=== PATIENT | male | born 1960 | race Caucasian/White ===

== ENCOUNTER 2019-12-20 18:05 | Emergency (ER) | payer OTHER, SELFPAY ==
[2019-12-20 18:23] VITALS: BP 123/71; PULSE 67; RESP 20; TEMP 36.8; O2SAT 97; BMI 33.4
--- NOTE | 2019-12-20 19:29 | PC.NURSE ---
MD in to bedside for primary eval
--- NOTE | 2019-12-20 19:33 | CT_ITS ---
EXAMINATION: CT ABDOMEN AND PELVIS WITHOUT CONTRAST CLINICAL INFORMATION: Right flank pain COMPARISON: None TECHNIQUE: Multidetector volumetric imaging was performed from the superior aspect of the liver through the pubic symphysis. Sagittal and coronal reformatted images were obtained on the technologist's workstation. This CT examination was performed using dose optimization techniques as appropriate, variously including the following: *Automated exposure control *Adjustment of mA and/or kV according to patient size (this includes techniques or standardized protocols for targeted exams where dose is matched to indication/reason for exam; i.e. extremities or head) *Use of iterative reconstruction technique DLP: 773 mGy-cm FINDINGS: LUNG BASES: The visualized lung bases are unremarkable. LIVER, GALLBLADDER, AND BILIARY TREE: The liver is normal in size, shape, and attenuation. No focal hepatic lesion or biliary ductal dilatation is present. There is a gallstone within the gallbladder neck. No evidence of acute cholecystitis. No biliary ductal dilatation. PANCREAS: Unremarkable. SPLEEN: Unremarkable. ADRENAL GLANDS: Unremarkable. KIDNEYS AND URETERS: The kidneys are normal in size, shape, and attenuation. No hydronephrosis, hydroureter, or calculi seen. No perinephric stranding. BLADDER: Unremarkable. GASTROINTESTINAL TRACT: The small and large bowel are unremarkable. The appendix is unremarkable. ABDOMINAL WALL: No significant hernia is appreciated. Incidental intramuscular lipoma along the left anterolateral abdominal wall. LYMPH NODES: Normal. VASCULAR: Scattered atherosclerotic calcifications. PELVIC VISCERA: Unremarkable. OSSEOUS STRUCTURES: Unremarkable. IMPRESSION: No renal or ureteral calculi. No hydronephrosis. Cholelithiasis. No focal inflammatory process or obstruction.
[2019-12-20 19:55] LABS: MANUAL DIFF FLAG NO
[2019-12-20] MEDS: ondansetron HCL 4 MG/2 ML VIAL IVPUSH (19:55)
[2019-12-20] MEDS: Ketorolac Tromethamine 15 MG/ML VIAL IV (19:55)
[2019-12-20 19:56] LABS: Basophils Percent Auto 0.4 % (0-2); Eosinophils Absolute Auto 0.2 X10*3/uL (0.0-0.4); Eosinophils Percent Auto 3.3 % (0-4); Hematocrit 46.4 % (42-52); Hemoglobin 15.7 g/dl (14.0-18.0); Imm Gran Abs Auto 0.02 X10*3/uL (0.00-0.03); Imm Gran Pct Auto 0.3 % (0.0-0.4); Lymphocytes Absolute Auto 2.7 X10*3/uL (1.2-4.9); Lymphocytes Percent Auto 38.6 % (20-40); Mean Corpuscular HGB Conc 33.8 g/dl (31.0-36.0); Mean Corpuscular Hemoglobin 28.8 pg (27.0-33.0); Mean Corpuscular Volume 85.1 fL (80-98); Mean Platelet Volume 9.4 fL (9.4-12.4); Monocytes Absolute Auto 0.7 X10*3/uL (0.1-1.2); Monocytes Percent Auto 9.7 % (2-11); Neutrophils Absolute Auto 3.3 X10*3/uL (2.0-8.3); Neutrophils Percent Auto 47.7 % (45-73); Platelet Count 167 X10*3/uL (160-400); Red Blood Count 5.45 X10*6/uL (4.60-5.80); Red Cell Distribution Width 14.7 % (11.0-16.0); White Blood Count 6.9 X10*3/uL (4.8-10.8)
[2019-12-20 20:00] LABS: Glucose Urine UA NEG (NEG); Leukocyte Esterase Urine NEG (NEG); Nitrite Urine NEG (NEG); Urine Blood NEG (NEG); Urine Ketones NEG (NEG); Urine Protein NEG (NEG-TRACE)
[2019-12-20 20:01] LABS: Appearance Urine CLEAR; Color Urine YELLOW
--- NOTE | 2019-12-20 20:01 | ED_ITS ---
HPI - Back Pain/Injury General Chief Complaint: Back Pain/Injury Stated Complaint: BACK PAIN Time Seen by Provider: 12/20/19 19:24 History of Present Illness HPI Narrative: Patient is a 59-year-old male presents today with having right flank pain. It does not radiate anywhere. No fever no chills no coughing or congestion or upper respiratory symptoms. No bowel urinary incontinence. No pain on urination. No chest pain or shortness of breath. No diaphoresis. The pain is sharp in nature. MD elicited complaint: back pain Pertinent past history: prior back pain Onset (ago): hour(s) Timing: constant Severity: moderate Similar Symptoms Previously: No Quality: sharp Location: lumbar spine Radiation: none Exacerbating factors: none Relieving factors: none Context: turning/twisting Associated symptoms: denies other symptoms Related Data Previous Rx's Medication Instructions Recorded ibuprofen 400 mg PO Q6H PRN #20 tab 12/20/19 Allergies Allergy/AdvReac Type Severity Reaction Status Date / Time No Known Allergies Allergy Verified 12/20/19 18:31 Review of Systems Review of Systems: Yes all other systems are reviewed and are negative Eyes: Eyes: Reports as per HPI and Reports no additional eye complaints ENT: Reports system reviewed and no additional complaints, except as documented and Reports as per HPI Cardiovascular: Cardiovascular: Reports as per HPI and Reports no additional cardiovascular complaints Respiratory: Respiratory: Reports as per HPI and Reports no additional respiratory complaints Gastrointestinal: Gastrointestinal: Reports as per HPI, Reports no additional gastrointestinal complaints and Denies abdominal pain Genitourinary: Genitourinary: Reports no additional male genitourinary complaints and Reports as per HPI Musculoskeletal: Musculoskeletal: Reports no additional musculoskeletal complaints and Reports as per HPI Neurologic: Reports system reviewed and no additional complaints, except as documented and Reports as per HPI Psychiatric: Psychiatric: Reports no additional psychiatric complaints Endocrine: Endocrine: Reports no additional endocrine complaints and Reports as per HPI Hematologic/Lymphatic: Hematologic/Lymphatic: Reports no additional hematologic/lymphatic complaints Allergic/Immunologic: Allergic/Immunologic: Reports no additional allergic/immunologic complaints and Reports as per HPI PMFSH Past Medical History Medical History (Updated 12/20/19 @ 21:58 by Jena Mary MD) Diabetic acidosis, type II Hepatitis C Liver cirrhosis Social History Social History Alcohol intake: former Smoking Status: Current every day smoker Smoked in Last 30 Days: Yes Use of substances other than those prescribed or required for medical reasons: Yes Substance Use Type: IV Drugs Substance Use Frequency: Chronic Longstanding Any prior treatment program specific to substance use: Yes Advance Directives: No Advance Directives Information Provided: Yes Physical Exam Vital Signs: Vital Signs: Vital Signs Temp Pulse Resp BP Pulse Ox 12/20/19 18:23 98.3 F 67 20 123/71 97 Body Mass Index 33.4 Const: General: cooperative Orientation/consciousness: oriented to person, oriented to place and oriented to time HENMT: Head: Yes normal to inspection General nose exam: Normal external nose present Eyes: General: appearance normal, both eyes and all related structures Eyelids: Yes eyelids normal Conjunctivae: conjunctivae normal Sclerae: sclerae normal Corneas: corneas normal Pupils: Equal, round and reactive pupils present EOM: EOMs intact bilaterally Neck: Neck: Yes normal visual inspection, Yes full ROM and Yes no lymphadenopathy Chest: Chest palpation & inspection: normal inspection of the chest and normal palpation of entire chest wall Resp: Effort & Inspection: normal respiratory effort and able to speak in complete sentences Auscultation: clear to auscultation bilaterally Cardio: Jugular venous distension: no JVD Rate: regular rate Rhythm: regular rhythm Heart sounds: S1 normal heart sound present and S2 normal heart sound present GI: Inspection: Yes normal to inspection Palpation (GI): Soft to palpation, not firm, nontender and no guarding : General: No CVA tenderness and Yes no CVA tenderness Back/Spine/Pelvis: Back: no CVA tenderness and No CVA tenderness Skin: General skin exam: no rashes or lesions noted Neuro: General: oriented to person, oriented to place and oriented to time Cranial nerves: Yes Equal, round and reactive pupils present Extrem: General: Yes normal to inspection and Yes full ROM Psych: Appearance: grossly normal Course Course Course Narrative: Labs and pain medication ordered. Will get CT scan to rule out the possibility of kidney stones and other pathologies. MDM - Back Pain/Injury MDM Narrative Medical decision making narrative: patient did not have any bowel urinary incontinence. No focal weakness. CT scan of the abdomen did not show any acute evidence of abdominal aortic aneurysm. No kidney stone. No obstruction or abscess no perforation. Patient given a dose of NSAID with good relief of symptoms. Kidney functions normal. Will discharge patient home follow-up on an outpatient basis. Lab Data Result diagrams: 12/20/19 19:50 12/20/19 19:50 Labs: Lab Results 12/20/19 12/20/19 12/20/19 Range/Units 19:50 19:50 19:50 WBC 6.9 (4.8-10.8) X10*3/uL RBC 5.45 (4.60-5.80) X10*6/uL Hgb 15.7 (14.0-18.0) g/dl Hct 46.4 (42-52) % MCV 85.1 (80-98) fL MCH 28.8 (27.0-33.0) pg MCHC 33.8 (31.0-36.0) g/dl RDW 14.7 (11.0-16.0) % Plt Count 167 (160-400) X10*3/uL MPV 9.4 (9.4-12.4) fL Immature Gran % (Auto) 0.3 (0.0-0.4) % Neut % (Auto) 47.7 (45-73) % Lymph % (Auto) 38.6 (20-40) % [place] % (Auto) 9.7 (2-11) % Eos % (Auto) 3.3 (0-4) % Baso % (Auto) 0.4 (0-2) % Lymph # (Auto) 2.7 (1.2-4.9) X10*3/uL [place] # (Auto) 0.7 (0.1-1.2) X10*3/uL Eos # (Auto) 0.2 (0.0-0.4) X10*3/uL Baso # (Auto) 0.0 (0.0-0.2) X10*3/uL Abs Immat Gran (auto) 0.02 (0.00-0.03) X10*3/uL Absolute Neuts (auto) 3.3 (2.0-8.3) X10*3/uL Absolute Nucleated RBC 0.000 (0.0-0.012) X10*3/uL Nucleated RBC % (auto) 0.0 (0.0-0.2) /100WBC Sodium 141 (135-145) mmol/L Potassium 4.4 (3.3-5.1) mmol/l Chloride 105 (96-108) mmol/L Carbon Dioxide 30 H (22-29) mmol/L Anion Gap 10 L (12-20) BUN 23 H (9-16) mg/dL Creatinine 0.98 (0.5-1.4) mg/dL Estim Creat Clear Calc 94.0 Estimated GFR > 60 Random Glucose 120 H (60-115) mg/dL Calcium 8.8 (8.4-10.2) mg/dL Lipase 29 (8-78) U/L Urine Color YELLOW Urine Appearance CLEAR Urine pH 7.0 (5.0-8.0) Ur Specific [place] 1.020 (1.005-1.025) Urine Protein NEG (NEG-TRACE) MG/DL Urine Glucose (UA) NEG (NEG) MG/DL Urine Ketones NEG (NEG) MG/DL Urine Blood NEG (NEG) Urine Nitrite NEG (NEG) Ur Leukocyte Esterase NEG (NEG) Discharge Plan Discharge Clinical Impression: Strain of lumbar region Patient Disposition: Home, Self-Care Prescriptions: New ibuprofen 400 mg tablet 400 mg PO Q6H PRN (Reason: pain) Qty: 20 RF: 0 Referrals: [facility] [Provider Group] - 2 days
[2019-12-20 20:28] LABS: Anion Gap 10 (12-20); Blood Urea Nitrogen 23 mg/dL (9-16); Calcium 8.8 mg/dL (8.4-10.2); Carbon Dioxide 30 mmol/L (22-29); Chloride 105 mmol/L (96-108); Estimated Glomerular Filt Rate > 60; Glucose Random 120 mg/dL (60-115); Lipase 29 U/L (8-78); Potassium 4.4 mmol/l (3.3-5.1); Sodium 141 mmol/L (135-145)
== END 2019-12-20 22:23 | disposition home or self-care (01) ==
PROVIDERS: Emergency Provider Emergency Medicine Emergency Medical Services; PCP Internal Medicine Gastroenterology
DX: S39.012A Strain of muscle, fascia and tendon of lower back, initial encounter (principal); M54.6 Pain in thoracic spine; X50.1XXA Overexertion from prolonged static or awkward postures, initial encounter; Y93.9 Activity, unspecified; Y92.9 Unspecified place or not applicable; Y99.9 Unspecified external cause status; F17.200 Nicotine dependence, unspecified, uncomplicated; Z71.6 Tobacco abuse counseling
CPT/HCPCS: 36415; 74176; 80048; 81003; 83690; 85025; 96374; 96375; 99284; J1885; J2405

== ENCOUNTER 2019-12-29 09:51 | Emergency (ER) | payer OTHER, SELFPAY ==
[2019-12-29 10:04] VITALS: BP 129/78; PULSE 71; RESP 16; TEMP 36.2; O2SAT 95; BMI 34.2
--- NOTE | 2019-12-29 10:46 | XR_ITS ---
EXAMINATION: XR WRIST, LEFT CLINICAL INFORMATION: Pain left hand and left wrist. History of arthritis. COMPARISON: None TECHNIQUE: PA, lateral, and oblique views of the left wrist. FINDINGS: The bones and soft tissues are normal. No fracture. Alignment is anatomic with normal joint spaces. No erosions or abnormal soft tissue calcifications. IMPRESSION: Unremarkable left wrist exam
--- NOTE | 2019-12-29 11:23 | ED_ITS ---
HPI - Extremity Problem General Chief complaint: Extremity Injury, Upper Stated complaint: left wrist pain Time Seen by Provider: 12/29/19 10:18 Source: patient Mode of arrival: ambulatory Limitations: no limitations History of Present Illness HPI Narrative: 59yoM c PMHx of rheumatoid arthritis, hepatitis-C, liver cirrhosis, asthma and diabetes presenting to the ED c c/o left wrist/hand pain c numbness to first 4 digits excluding the little finger for a few weeks worse today c associated hand/finger stiffness. Denies any injuries or any additional complaints or concerns at this time. Reports he has been trying to reach out to his primary care provider for referral for his left wrist/hand pain for possible carpal tunnel which he believes it is although has not had a return call back. Related Data Previous Rx's Medication Instructions Recorded ibuprofen 400 mg PO Q6H PRN #20 tab 12/20/19 Allergies Allergy/AdvReac Type Severity Reaction Status Date / Time No Known Allergies Allergy Verified 12/20/19 18:31 Review of Systems Review of Systems: Constitutional : No Weight loss, No Fever, No Chills, No Night Sweats, No Fatigue, No Malaise ENT/Mouth : No Hearing loss, No Ear Pain, No Nasal Congestion, No Sinus Pain, No Hoarseness, No sore throat, No Rhinorrhea, No Swallowing Difficulty Eyes: No Eye Pain, No Swelling, No Redness, No Foreign Body, No Discharge, No Vision Changes Cardiovascular : No Chest Pain, No SOB, No Dyspnea on Exertion, No Orthopnea, No Edema, No Palpitations Respiratory : No Cough, No Sputum, No Wheezing, No Smoke Exposure, No Dyspnea Gastrointestinal : No Nausea, No Vomiting, No Diarrhea, No Constipation, No abdominal Pain= Musculoskeletal : No Myalgias Skin : No Skin Lesions, No rash Neuro : No Weakness, No Paresthesias, No Loss of Consciousness, No Dizziness, No Headache Heme/Lymph: No Bruising, No Bleeding,No Lymphadenopathy Endocrine : No Polyuria, No Polydipsia, No Temperature Intolerance Yes all other systems are reviewed and are negative [facility] Past Medical History Attestation statement: The following information was validated with the patient. Medical History Asthma Diabetic acidosis, type II Hepatitis C Liver cirrhosis Pilonidal cyst Social History Social History Alcohol intake: never Smoking Status: Current every day smoker Substance Use Type: Former Substance User Advance Directives: Yes Advance Directives Information Provided: Yes Advance Directives on File: No Physical Exam Vital Signs: Vital Signs: Vital Signs Temp Pulse Resp BP Pulse Ox 12/29/19 10:04 97.1 F 71 16 129/78 95 Body Mass Index 34.2 vital signs have been reviewed as normal and appeared to be correct. Blood pressure normal. Heart rate normal. Respiration rate normal. Temperature normal. Oxygen saturation normal. Appearance: Alert. Oriented X3. No acute distress. Head: Normal external exam. Normocephalic. Atraumatic. No Gonzales signs noted. No raccoon eyes noted Eyes: PERRLA. EOMI. Conjunctiva and sclera normal. Eyelids normal. ENT: EAC normal. TM's Normal. Pharynx normal. Uvula midline. Moist mucous membranes. No trismus noted. No drooling noted. No muffled voice noted. Neck: Normal inspection. Neck supple. FROM. No adenopathy. Thyroid Normal. No meningeal signs. No neck mass noted. CVS: Normal heart rate and rhythm. Heart sound normal. No murmurs noted. Pulses normal throughout. Respiratory: No respiratory distress. Painless inspiration. Breath sounds normal. No wheezes/rales/rhonchi noted. Chest nontender. No accessory muscle usage noted or decreased air movement noted. Abdomen: Soft and nontender. Bowel sounds normal in all 4 quadrants. No distention noted. No organomegaly noted. No visible injury noted. Back: No CVA tenderness. Full range of motion noted. Skin: Skin warm and dry. Normal skin color. Normal skin turgor. No rashes/lesions/lacerations noted. Extremities: left wirst/hand c ttp over the distal aspect of the wrist on the ventral aspect. +Prayer's/Phalen's sign. limited ROM for flexion on all finger due to stiffness/pain per pt. all other extremities nontender and exhibit normal range of motion.. No lower extremity edema. Neuro: Oriented X 3. No motor deficit. No sensory deficit. Reflexes normal. Course Course Course Narrative: 59yoM c PMHx of rheumatoid arthritis, hepatitis-C, liver cirrhosis, asthma and diabetes presenting to the ED c c/o left wrist/hand pain c numbness to first 4 digits excluding the little finger for a few weeks worse today c associated hand/finger stiffness. - Plan: Xray then place in cock up velcro splint then re-evaluate. MDM - Extremity (Nontraumatic) Imaging Data left wrist/hand: Attestation: I personally reviewed and interpreted this imaging study as follows: Radiologist's impression: FINDINGS: The bones and soft tissues are normal. No fracture. Alignment is anatomic with normal joint spaces. No erosions or abnormal soft tissue calcifications. IMPRESSION: Unremarkable left wrist exam Discharge Plan Discharge Prescriptions: No Action ibuprofen 400 mg tablet 400 mg PO Q6H PRN (Reason: pain) Qty: 20 RF: 0
== END 2019-12-29 11:46 | disposition home or self-care (01) ==
PROVIDERS: Emergency Provider Emergency Medicine
DX: M25.532 Pain in left wrist (principal); Z87.891 Personal history of nicotine dependence
CPT/HCPCS: 73110; 99283

== ENCOUNTER 2020-03-25 13:30 | Emergency (ER) | payer OTHER, SELFPAY ==
--- NOTE | 2020-03-25 14:27 | MHC.RECOVSUP ---
Recovery Support note: Patient is 60 year old Kiswahili speaking male who presented [place] [facility] [place]. Patient reports he was previously in a residential treatment program and was removed from the program, reportedly due to missing part of a meeting. Patient reports that he relapsed last night and he has no where to go. Discussed treatment options with patient. Patient reports he is interested in going to detox so that he can get back into treatment. Explained to patient that there are currently no detox beds available in the state and that he may no be able to remain in the ED until a bed is available. Patient acknowledged and reports his niece may be able to pick him up/ let him stay until he gets a bed. Patient is currently on the wait list at [facility]. [facility] reports that they are familiar with this patient and that they will likely have a bed for him tomorrow.
--- NOTE | 2020-03-25 14:29 | PC.NURSE ---
PT REPEATEDLY IN AND OUT OF ED, NOT PRESENT WHEN CALLED FOR TRIAGE MULTIPLE TIMES.
[2020-03-25 15:08] VITALS: BP 140/71; PULSE 85; RESP 16; TEMP 36.6; O2SAT 97; BMI 32.6
--- NOTE | 2020-03-25 15:18 | ED_ITS ---
HPI - Psych General Chief Complaint: ETOH/Substance Use Stated Complaint: detox Time Seen by Provider: 03/25/20 15:16 Source: patient Mode of arrival: ambulatory Limitations: no limitations History of Present Illness HPI Narrative: 60 y/o male with history of RA, hepatitis C, asthma, DM who presents for detox. He reports being in a program for the last 10 months but he was recently kicked out for missing a meeting. He reports going to a Methadone clinic but also using heroin for the last 2 days. Last injected earlier today. Denies other drug use. Denies ETOH use. Denies SI or HI. MD complaint: feels depressed and substance abuse Onset (ago): day(s) (3) Duration: constant History of same: Yes Relieving factors: none Exacerbating factors: drug use Context: recent drug abuse Associated psychiatric symptoms: depression Associated symptoms: denies other symptoms Treatments prior to arrival: none Related Data Previous Rx's Medication Instructions Recorded ibuprofen 400 mg PO Q6H PRN #20 tab 12/20/19 naproxen 500 mg PO BID PRN #15 tab 12/29/19 prednisone 40 mg PO DAILY 5 Days #10 tab 12/29/19 Allergies Allergy/AdvReac Type Severity Reaction Status Date / Time No Known Allergies Allergy Verified 12/20/19 18:31 Review of Systems Review of Systems: Constitutional: No Fever, No Chills ENT/Mouth: No sore throat Cardiovascular: No Chest Pain, No SOB Respiratory: No Cough, No Sputum Gastrointestinal: No Nausea, No Vomiting, No Diarrhea, No abdominal Pain Musculoskeletal: No joint pain, No Myalgias Skin: No Skin Lesions, No rash Neuro: No Weakness, No Numbness, No Dizziness, + Headache Psych: No Anxiety/Panic, + Depression PMFSH Past Medical History Medical History Asthma Diabetic acidosis, type II Hepatitis C Liver cirrhosis Pilonidal cyst Social History Social History Alcohol intake: never Smoking Status: Current every day smoker Substance Use Type: Former Substance User Advance Directives: No Advance Directives Information Provided: Yes Physical Exam Vital Signs: Vital Signs: Last Vital Signs Temp 97.8 F 03/25/20 15:08 Pulse 85 03/25/20 15:08 Resp 16 03/25/20 15:08 BP 140/71 H 03/25/20 15:08 Pulse Ox 97 03/25/20 15:08 Body Mass Index 32.6 Appearance: Alert. Oriented X3. No acute distress. Eyes: Pupils equal, round and reactive to light. ENT: Pharynx normal. Neck: Normal inspection. Neck supple. CVS: Normal heart rate and rhythm. Pulses normal. Respiratory: No respiratory distress. Breath sounds normal. Abdomen: Soft and nontender. +BS x4 Skin: Skin warm and dry. Normal skin color. Normal skin turgor. No rashes. Extremities: No lower extremity edema. Neuro: Oriented X 3. Course Course Course Narrative: 60 y/o with history of heroin use presenting seeking detox. Seen by CARE team case management social worker. Will await recs. Reevaluation(s) Reevaluation #1: CARE team Paramjit spoke with patient and made referrals to several detox programs. No beds available today, likely tomorrow. Patient's niece willing to take him overnight. He will need to follow up with Prov tomorrow, every 6 hours to maintain being on the list. Patient has been counseled exten sively by Paramjit. He is stable for discharge with plan for detox bed tomorrow. Reevaluation #2: COVID negative and Utox +opiates, amphetamines and cocaine MDM - Psych Lab Data Attestation: I reviewed the patient's lab results. Labs: Lab Results 03/25/20 03/25/20 Range/Units 15:57 16:45 Urine Opiates Screen POSITIVE H (Not Detect) Ur Barbiturates Screen Not Detected (Not Detect) Ur Phencyclidine Scrn Not Detected (Not Detect) Ur Amphetamines Screen POSITIVE H (Not Detect) U Benzodiazepines Scrn Not Detected (Not Detect) Urine Cocaine Screen POSITIVE H (Not Detect) U Marijuana (THC) Screen Not Detected (Not Detect) COVID-19 (JENNIFER) Negative (Negative) COVID-19 Clin Com See Note Discharge Plan Discharge Clinical Impression: Polysubstance abuse Patient Disposition: Home, Self-Care Instructions: Opioid Use Disorder (ED), Opioid Withdrawal (ED) Additional Instructions: Call the detox center every 6 hours to stay on the list for detox. A bed will likely be available to you tomorrow. Do not use heroin, it call kill you. If you develop worsening withdrawal come back to the ER for further management. Prescriptions: No Action naproxen 500 mg tablet 500 mg PO BID PRN (Reason: pain) Qty: 15 RF: 0 prednisone 20 mg tablet 40 mg PO DAILY 5 Days Qty: 10 RF: 0 ibuprofen 400 mg tablet 400 mg PO Q6H PRN (Reason: pain) Qty: 20 RF: 0
[2020-03-25 15:59] VITALS: PULSE 55
--- NOTE | 2020-03-25 16:09 | MHC.RECOVSUP ---
Recovery Support note: Discussed with patient that there are currently no beds available for ATS. Patient is currently on the wait list for [facility] and [facility]. Patient demographic information has been faxed to both facilities. They will reach out to patient if a bed becomes available and patient has been instructed to call each facility every 4-6 hours to remain on the list. Patient provided with number for each facility. Patient is awaiting a COVID test and a toxicology report. Patient labs will need to be faxed to [facility] (fax - [phone]). This signwriter will follow up with [facility] tomorrow morning to ensure that they have everything they need to admit patient when bed becomes available. Encouraged patient to reach out to his niece to see if she would be able to pick him up and have him spend then night until a bed becomes available. Discussed case with patient's ED provider.
[2020-03-25 16:32] LABS: COVID-19 Test Negative (Negative)
[2020-03-25 17:19] LABS: Amphetamine Screen Urine POSITIVE (Not Detect); Barbiturates, Urine Not Detected (Not Detect); Benzodiazepines Screen Urine Not Detected (Not Detect); Cannabinoid Screen Urine Not Detected (Not Detect); Cocaine Screen Urine POSITIVE (Not Detect); Opiate Screen Urine POSITIVE (Not Detect); Phencyclidine Screen Urine Not Detected (Not Detect)
[2020-03-25 18:00] VITALS: BP 138/74; PULSE 82; RESP 18; TEMP 36.8; O2SAT 97
== END 2020-03-25 18:11 | disposition home or self-care (01) ==
PROVIDERS: Physician Assistant; Emergency Provider Emergency Medicine Emergency Medical Services
DX: F11.10 Opioid abuse, uncomplicated (principal); F33.1 Major depressive disorder, recurrent, moderate; F17.200 Nicotine dependence, unspecified, uncomplicated; Z71.6 Tobacco abuse counseling; Z20.822 Contact with and (suspected) exposure to COVID-19; Z79.899 Other long term (current) drug therapy; Z71.51 Drug abuse counseling and surveillance of drug abuser
CPT/HCPCS: 36415; 80307; 87635; 99283; 99284

== ENCOUNTER 2020-03-26 09:15 | Emergency (ER) | payer OTHER, SELFPAY ==
--- NOTE | 2020-03-26 09:50 | MHC.RECOVSUP ---
Recovery Support note: Patient is a 60 year old Faroese speaking male who presented [place] [facility] [place] seeking detox. Plan was for patient to have his niece pick him up and for him to follow up with [facility] today. Patient was unable to have his niece pick him up and ended up remaining on [facility] after discharge. Patient has been in contact with [facility]. [facility] informed this inspector automatic typewriter that they are holding a bed for him but they must first review his clinical before they can offer him an admission. Discussed case with relief charge nurse. If patient needs additional labs prior to admission, patient would benefit from a readmission. Patient expressed concern related to getting his methadone dose. Explained to patient that [facility] will be able to dose him if he is admitted and that if his admission time is pushed back to later tonight he can readmit to the ED for a dose. This inspector automatic typewriter will follow up with [facility] and patient in one hour to determine plan. This inspector automatic typewriter will assist with arranging transportation for patient.
[2020-03-26 10:56] VITALS: BP 144/78; PULSE 72; RESP 18; TEMP 36.9; O2SAT 95; BMI 32.6
--- NOTE | 2020-03-26 11:27 | MHC.RECOVSUP ---
Recovery Support note: Patient has a bed held at [facility] for a 1500 admission pending the results of patient's labs. Patient reports he may be able to have a public speaking coach transport him. This health underwriter can assist with transportation if that does not work out. Patient eager to leave the hospital to smoke a cigarette. Explained the important of remaining for the labs and patient acknowledged. Patient also expressed concerns regarding getting his methadone dose today. Discussed case with patient's RN. This health underwriter will fax patient's labs and any medications given to [facility] (fax - [phone]).
--- NOTE | 2020-03-26 11:52 | ED_ITS ---
HPI - General Adult General Chief complaint: General Medical Stated complaint: withdrawal Time Seen by Provider: 03/26/20 11:52 Source: patient Mode of arrival: ambulatory Limitations: no limitations History of Present Illness HPI narrative: 60-year-old male with below noted past medical history including history of polysubstance abuse here for detox placement. He was here yesterday had a tox screen done advise today by the counselor to come here for medical screening labs and bed at [facility] for 15:00 today. Patient offers no complaints. He is requesting to be dosed with his methadone he has got last dos e yesterday he is on 60 mg. He goes to the [facility] in [place]. He offers no medical complaints. Onset (ago): day(s) Treatments prior to arrival: none Related Data Previous Rx's Medication Instructions Recorded ibuprofen 400 mg PO Q6H PRN #20 tab 12/20/19 naproxen 500 mg PO BID PRN #15 tab 12/29/19 prednisone 40 mg PO DAILY 5 Days #10 tab 12/29/19 Allergies Allergy/AdvReac Type Severity Reaction Status Date / Time No Known Allergies Allergy Verified 12/20/19 18:31 Review of Systems Review of Systems: Constitutional: No Weight loss, No Fever, No Chills, No Night Sweats, No Fatigue, No Malaise ENT/Mouth: No Hearing loss, No Ear Pain, No Nasal Congestion, No Sinus Pain, No Hoarseness, No sore throat, No Rhinorrhea, No Swallowing Difficulty Eyes: No Eye Pain, No Swelling, No Redness, No Foreign Body, No Discharge, No Vision Changes Cardiovascular: No Chest Pain, No SOB, No Dyspnea on Exertion, No Orthopnea, No Edema, No Palpitations Respiratory: No Cough, No Sputum, No Wheezing, No Smoke Exposure, No Dyspnea Gastrointestinal: No Nausea, No Vomiting, No Diarrhea, No Constipation, No abdominal Pain, No Hematochezia, No Melena Genitourinary: no irregular bleeding, No Dysuria, No Urinary Frequency, No Hematuria, No Urinary Incontinence, No Urgency, No Flank Pain Musculoskeletal: No joint pain, No Myalgias, No Joint Swelling Skin: No Skin Lesions, No rash Neuro: No Weakness, No Numbness, No Paresthesias, No Loss of Consciousness, No Dizziness, No Headache Psych: No Anxiety/Panic, No Depression, No SI/HI/AH/VH Heme/Lymph: No Bruising, No Bleeding,No Lymphadenopathy Endocrine: No Polyuria, No Polydipsia, No Temperature Intolerance Yes all other systems are reviewed and are negative [facility] Past Medical History Medical History Asthma Diabetic acidosis, type II Hepatitis C Liver cirrhosis Pilonidal cyst Social History Social History Alcohol intake: never Smoking Status: Current every day smoker Substance Use Type: Former Substance User Advance Directives: No Advance Directives Information Provided: Yes Physical Exam Vital Signs: Vital Signs: Last Vital Signs Temp 98.5 F 03/26/20 10:56 Pulse 72 03/26/20 10:56 Resp 18 03/26/20 10:56 BP 144/78 H 03/26/20 10:56 Pulse Ox 95 03/26/20 10:56 Body Mass Index 32.6 Reviewed Const: General: cooperative and healthy appearing; No acute distress or intoxicated appearing Nutritional Appearance: average body habitus Orientation/consciousness: patient oriented x3 HENMT: Head: Yes normal to inspection Ears: hearing grossly normal bilaterally Eyes: General: appearance normal, both eyes and all related structures Visual Leong: normal visual leong by confrontation Neck: Neck: Yes normal visual inspection, No positive Brudzinski's sign, No positive Kernig's sign and No tender Thyroid: Thyroid normal Chest: Chest palpation & inspection: normal inspection of the chest Resp: Effort & Inspection: normal respiratory effort Cardio: Jugular venous distension: no JVD Rate: regular rate Rhythm: regular rhythm Heart sounds: S1 normal heart sound present and S2 normal heart sound present GI: Inspection: Yes normal to inspection Percussion: Yes normal to percussion Auscultation: normal bowel sounds : General: Yes no CVA tenderness Back/Spine/Pelvis: Back: no CVA tenderness Skin: General skin exam: no rashes or lesions noted Neuro: General: patient oriented x3 Extrem: General: Yes normal to inspection Course Course Course Narrative: Substance abuse counselor Paramjit assisted patient securing bed at the detox center at [place]. Intake done. Will transfer with assistance of care team. Medical Decision Making Lab Data Result diagrams: 03/26/20 12:01 01/15/21 12:01 Labs: Lab Results 03/26/20 03/26/20 Range/Units 12:01 12:01 WBC 8.0 (4.8-10.8) X10*3/uL RBC 5.60 (4.60-5.80) X10*6/uL Hgb 15.9 (14.0-18.0) g/dl Hct 47.6 (42-52) % MCV 85.0 (80-98) fL MCH 28.4 (27.0-33.0) pg MCHC 33.4 (31.0-36.0) g/dl RDW 13.4 (11.0-16.0) % Plt Count 172 (160-400) X10*3/uL MPV 10.0 (9.4-12.4) fL Immature Gran % (Auto) 0.4 (0.0-0.4) % Neut % (Auto) 72.8 (45-73) % Lymph % (Auto) 18.2 L (20-40) % Clinch % (Auto) 6.4 (2-11) % Eos % (Auto) 2.0 (0-4) % Baso % (Auto) 0.2 (0-2) % Lymph # (Auto) 1.5 (1.2-4.9) X10*3/uL Clinch # (Auto) 0.5 (0.1-1.2) X10*3/uL Eos # (Auto) 0.2 (0.0-0.4) X10*3/uL Baso # (Auto) 0.0 (0.0-0.2) X10*3/uL Abs Immat Gran (auto) 0.03 (0.00-0.03) X10*3/uL Absolute Neuts (auto) 5.8 (2.0-8.3) X10*3/uL Absolute Nucleated RBC 0.000 (0.0-0.012) X10*3/uL Nucleated RBC % (auto) 0.0 (0.0-0.2) /100WBC Sodium 140 (135-145) mmol/L Potassium 4.1 (3.3-5.1) mmol/l Chloride 104 (96-108) mmol/L Carbon Dioxide 25 (22-29) mmol/L Anion Gap 15 (12-20) BUN 23 H (9-16) mg/dL Creatinine 0.92 (0.5-1.4) mg/dL Estim Creat Clear Calc 97.8 Estimated GFR > 60 Random Glucose 166 H D (60-115) mg/dL Calcium 8.8 (8.4-10.2) mg/dL Total Bilirubin 0.5 (0.0-1.0) mg/dL AST 18 (5-37) U/L ALT 24 (0-40) U/L Alkaline Phosphatase 70 (39-117) U/L Total Protein 7.2 (6.5-8.0) g/dL Albumin 3.6 (3.5-5.0) g/dL Discharge Plan Discharge Clinical Impression: Substance abuse Patient Disposition: Home, Self-Care Instructions: Polysubstance Abuse (ED) Additional Instructions: Please go directly to detox Return if any concerns or worsening symptoms Thank you Prescriptions: No Action naproxen 500 mg tablet 500 mg PO BID PRN (Reason: pain) Qty: 15 RF: 0 prednisone 20 mg tablet 40 mg PO DAILY 5 Days Qty: 10 RF: 0 ibuprofen 400 mg tablet 400 mg PO Q6H PRN (Reason: pain) Qty: 20 RF: 0 Referrals: Physician,Unknown [Primary Care Provider] - 1 day (Go directly to [facility] detox) Discharge Date/Time: 03/26/20 14:30
[2020-03-26 12:04] LABS: MANUAL DIFF FLAG NO
[2020-03-26 12:06] LABS: Basophils Percent Auto 0.2 % (0-2); Eosinophils Absolute Auto 0.2 X10*3/uL (0.0-0.4); Hematocrit 47.6 % (42-52); Hemoglobin 15.9 g/dl (14.0-18.0); Imm Gran Abs Auto 0.03 X10*3/uL (0.00-0.03); Imm Gran Pct Auto 0.4 % (0.0-0.4); Lymphocytes Absolute Auto 1.5 X10*3/uL (1.2-4.9); Lymphocytes Percent Auto 18.2 % (20-40); Mean Corpuscular HGB Conc 33.4 g/dl (31.0-36.0); Mean Corpuscular Hemoglobin 28.4 pg (27.0-33.0); Monocytes Absolute Auto 0.5 X10*3/uL (0.1-1.2); Monocytes Percent Auto 6.4 % (2-11); Neutrophils Absolute Auto 5.8 X10*3/uL (2.0-8.3); Neutrophils Percent Auto 72.8 % (45-73); Platelet Count 172 X10*3/uL (160-400); Red Cell Distribution Width 13.4 % (11.0-16.0)
[2020-03-26 12:49] LABS: Alanine Aminotransferase 24 U/L (0-40); Albumin Level 3.6 g/dL (3.5-5.0); Alkaline Phosphatase 70 U/L (39-117); Anion Gap 15 (12-20); Aspartate Amino Transferase 18 U/L (5-37); Bilirubin Total 0.5 mg/dL (0.0-1.0); Blood Urea Nitrogen 23 mg/dL (9-16); Calcium 8.8 mg/dL (8.4-10.2); Carbon Dioxide 25 mmol/L (22-29); Chloride 104 mmol/L (96-108); Creatinine Clr Calc Pharmacy 97.8; Estimated Glomerular Filt Rate > 60; Glucose Random 166 mg/dL (60-115); Potassium 4.1 mmol/l (3.3-5.1); Sodium 140 mmol/L (135-145); Total Protein 7.2 g/dL (6.5-8.0)
--- NOTE | 2020-03-26 13:39 | MHC.RECOVSUP ---
Recovery Support note: Patient has been accepted to [facility] for 1500. Patient is requesting his methadone dose prior to going to the facility. Patient had sealed last dose letter in his possessions. Patient will be medicated and transported to [facility] via [employer] or [employer].
--- NOTE | 2020-03-26 14:24 | PC.NURSE ---
PT HAS A BED AT [facility] FOR DETOX. CARE TEAM WORKING WITH PT FOR A UBER RIDE FOR 3:00
== END 2020-03-26 14:30 | disposition home or self-care (01) ==
PROVIDERS: Nurse Practitioner Primary Care; Emergency Provider Emergency Medicine
DX: Z02.2 Encounter for examination for admission to residential institution (principal); F19.10 Other psychoactive substance abuse, uncomplicated
CPT/HCPCS: 36415; 80053; 85025; 99283

== ENCOUNTER 2020-07-02 13:33 | Emergency (ER) | payer OTHER, SELFPAY ==
[2020-07-02 14:04] VITALS: BP 131/73; PULSE 66; RESP 18; TEMP 36.1; O2SAT 95; BMI 33.4
--- NOTE | 2020-07-02 14:13 | ED.DENTAL ---
HPI - Dental/Oral General Chief complaint: Dental/Oral Stated complaint: dental pain Time Seen by Provider: 07/02/20 14:10 Source: patient Mode of arrival: ambulatory Limitations: no limitations History of Present Illness HPI Narrative: 60 yo male here with left upper gum tenderness. Patient tells me he has a flap of skin in his left upper gumline which is irritated. He uses dentures which are broken and and do not fit correctly for the upper teeth. Related Data Previous Rx's Medication Instructions Recorded ibuprofen 400 mg PO Q6H PRN #20 tab 12/20/19 naproxen 500 mg PO BID PRN #15 tab 12/29/19 prednisone 40 mg PO DAILY 5 Days #10 tab 12/29/19 Magic Mouthwash 5 ml PO QID #240 ml 07/02/20 Diphen/Lido/Antacid 1:1:1 Allergies Allergy/AdvReac Type Severity Reaction Status Date / Time No Known Allergies Allergy Verified 12/20/19 18:31 Review of Systems Review of Systems: Yes all other systems are reviewed and are negative Constitutional: Constitutional: Reports no additional constitutional complaints, Denies body ache(s), Denies chills, Denies fever(s), Denies headache(s) and Denies weakness Eyes: Eyes: Reports no additional eye complaints and Denies change in vision ENT: Reports system reviewed and no additional complaints, except as documented, Denies dizziness, Denies headache(s), Denies nasal congestion, Denies nasal discharge and Denies neck pain Cardiovascular: Cardiovascular: Reports no additional cardiovascular complaints, Denies chest pain, Denies leg edema and Denies dyspnea Respiratory: Respiratory: Reports no additional respiratory complaints, Denies cough and Denies dyspnea Gastrointestinal: Gastrointestinal: Reports no additional gastrointestinal complaints, Denies abdominal pain, Denies diarrhea, Denies nausea and Denies vomiting Genitourinary: Genitourinary: Denies urinary incontinence Musculoskeletal: Musculoskeletal: Reports no additional musculoskeletal complaints, Denies back pain, Denies arthralgias, Denies joint swelling, Denies neck pain, Denies numbness and Denies tingling Integumentary/Breasts: Skin/Breast: Reports system reviewed and no additional complaints, except as docu and Denies rash Neurologic: Reports system reviewed and no additional complaints, except as documented, Denies dizziness, Denies headache(s), Denies numbness, Denies tingling and Denies weakness PMFSH Past Medical History Attestation statement: The following information was validated with the patient. Source: old records reviewed and nursing notes reviewed Medical History Asthma Diabetic acidosis, type II Hepatitis C Liver cirrhosis Pilonidal cyst Social History Social History Alcohol intake: never Smoking Status: Current every day smoker Substance Use Type: Former Substance User Advance Directives: Yes Advance Directives Information Provided: No Advance Directives on File: No Physical Exam Vital Signs: Vital Signs: Last Vital Signs Temp 97.0 F 07/02/20 14:04 Pulse 66 07/02/20 14:04 Resp 18 07/02/20 14:04 BP 131/73 07/02/20 14:04 Pulse Ox 95 07/02/20 14:04 Body Mass Index 33.4 Const: General: cooperative, healthy appearing, comfortable and no acute distress Orientation/consciousness: patient oriented x3 Limitations: no limitations HENMT: Head: Yes normal to inspection Ears: hearing grossly normal bilaterally General nose exam: Normal external nose present Face and sinus: Yes normal facial exam Teeth image: 1. all upper teeth absent, extensive caries with multiple missing teeth lower 2. apthous ulcer noted Throat: Yes posterior oropharynx normal, Yes tonsils normal and Yes uvula midline Eyes: General: appearance normal, both eyes and all related structures Neck: Neck: Yes normal visual inspection Chest: Chest palpation & inspection: normal inspection of the chest Resp: Effort & Inspection: normal respiratory effort Cardio: Peripheral pulses: Peripheral pulses 2+ throughout GI: Inspection: Yes normal to inspection Back/Spine/Pelvis: Thoracic/Lumbar Spine: thoracic and lumbar spine normal to inspection Skin: General skin exam: no rashes or lesions noted Neuro: General: patient oriented x3 and moves all extremities Cognition (Neuro): normal cognition Extrem: General: Yes normal to inspection Course Course Course Narrative: Exam consistent with an aphthous ulcer. Topical lidocaine applied. Patient has ill fitting dentures. Recommended follow-up dentist. Reviewed worrisome signs and symptoms of when to return to the emergency department. Comfortable discharge home. Discharge Plan Discharge Clinical Impression: Aphthous ulcer Patient Disposition: Home, Self-Care Instructions: Canker Sores (ED) Additional Instructions: Lukewarm foods, soft diet, avoid spicy or citrus foods as this may irritate it see dental clinic list Prescriptions: New Magic Mouthwash Diphen/Lido/Antacid 1:1:1 240 mL suspension 5 ml PO QID Qty: 240 RF: 0 No Action naproxen 500 mg tablet 500 mg PO BID PRN (Reason: pain) Qty: 15 RF: 0 prednisone 20 mg tablet 40 mg PO DAILY 5 Days Qty: 10 RF: 0 ibuprofen 400 mg tablet 400 mg PO Q6H PRN (Reason: pain) Qty: 20 RF: 0 Discharge Date/Time: 07/02/20 14:23
== END 2020-07-02 14:23 | disposition home or self-care (01) ==
PROVIDERS: Emergency Provider Emergency Medicine
DX: K12.0 Recurrent oral aphthae (principal); F17.200 Nicotine dependence, unspecified, uncomplicated; Z71.6 Tobacco abuse counseling; Z79.899 Other long term (current) drug therapy
CPT/HCPCS: 99283

== ENCOUNTER 2020-07-13 15:30 | Emergency (ER) | payer OTHER, SELFPAY ==
[2020-07-13 16:00] VITALS: BP 124/64; PULSE 59; RESP 18; TEMP 36.8; O2SAT 98; BMI 33.4
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
== END 2020-07-13 17:02 | disposition home or self-care (01) ==
PROVIDERS: Emergency Provider Internal Medicine
DX: K08.89 Other specified disorders of teeth and supporting structures (principal); E11.9 Type 2 diabetes mellitus without complications; K74.60 Unspecified cirrhosis of liver; F17.200 Nicotine dependence, unspecified, uncomplicated
CPT/HCPCS: 99283

== ENCOUNTER 2021-05-14 19:55 | Emergency (ER) | payer OTHER, SELFPAY ==
[2021-05-14 20:01] VITALS: BP 129/76; BP 148/76; PULSE 70; PULSE 78; RESP 16; TEMP 36.6; O2SAT 95; O2SAT 97; BMI 34.6
--- NOTE | 2021-05-14 20:43 | ED.EXTPRO ---
HPI - Extremity Problem General Chief complaint: Extremity Problem Stated complaint: rt arm tingiling Time Seen by Provider: 05/14/21 20:28 Source: patient Mode of arrival: EMS Limitations: no limitations History of Present Illness HPI Narrative: 7-year-old male who presents emergency department for evaluation of numbness and pain of his right hand. The patient states that he has a history of carpal tunnel syndrome and was told that he needed surgery but never got the surgery. The patient is currently in rehab for heroin use. He states that over the past several days it has gotten significantly worse to the point where has having severe, constant pain secondary to the numbness. The patient denies any weakness of the hand. He denies any other symptoms. States he does have rheumatoid arthritis he is having pain in his right foot. He states in the past prednisone has helped him with his rheumatoid arthritis and with his carpal tunnel syndrome. He denied fever, chills, chest pain, shortness of breath, fatigue. Related Data Previous Rx's Medication Instructions Recorded ibuprofen 400 mg tablet 400 mg PO Q6H PRN #20 tab 12/20/19 naproxen 500 mg tablet 500 mg PO BID PRN #15 tab 12/29/19 prednisone 20 mg tablet 40 mg PO DAILY 5 Days #10 tab 12/29/19 Magic Mouthwash 5 ml PO QID #240 ml 07/02/20 Diphen/Lido/Antacid 1:1:1 240 mL suspension chlorhexidine gluconate 0.12 % 15 ml BUCCAL BID #118 ml 07/13/20 mouthwash (Peridex) ibuprofen 800 mg tablet 800 mg PO Q8H PRN #20 tab 07/13/20 penicillin V potassium 500 mg 500 mg PO Q8H 7 Days #21 tab 07/13/20 tablet tramadol 50 mg tablet 50 mg PO Q8H PRN #8 tab 07/13/20 prednisone 20 mg tablet 60 mg PO DAILY 10 Days #30 tab 05/14/21 Allergies Allergy/AdvReac Type Severity Reaction Status Date / Time No Known Allergies Allergy Verified 07/13/20 15:59 Review of Systems Review of Systems: Yes all other systems are reviewed and are negative [facility] Past Medical History Attestation statement: The following information was validated with the patient. [facility] Narrative: Past medical history: Reviewed below, patient also has history of carpal tunnel syndrome of the right hand. Social history: The patient does smoke cigarettes, he denies alcohol use. He states that he has a history of heroin use but he is currently in rehab. He states that he lives in [place]. Medical History Asthma Diabetic acidosis, type II Hepatitis C Liver cirrhosis Pilonidal cyst Social History Social History Alcohol intake: never Substance Use Type: Former Substance User Advance Directives: No Advance Directives Information Provided: No Physical Exam Vital Signs: Vital Signs: Last Vital Signs Temp 97.9 F 05/14/21 20:01 Pulse 70 05/14/21 20:01 Resp 16 05/14/21 20:01 BP 129/76 05/14/21 20:01 Pulse Ox 95 05/14/21 20:01 BMI result Body Mass Index 34.6 Const: Other: Awake, alert, male patient, he is pleasant cooperative, he does not appear to be in distress. HENMT: Head: Yes normal to inspection Resp: Effort & Inspection: normal respiratory effort Skin: General skin exam: no rashes or lesions noted Neuro: Other: Nonfocal Extrem: Other: The patient has normal strength of the fingers of his right hand, he can make a strong okay sign and has strong opponents. His radial and ulnar pulses are strong and symmetric. The patient does have diminished light touch over his thumb index and middle finger. There is no increased warmth over the joints of the hand or wrist. He does have increased discomfort with palpation over carpal tunnel and with flexion of his wrist. Course Course Course Narrative: 61-year-old male who presents emergency department for evaluation of numbness and pain of his right thumb index and middle finger secondary to carpal tunnel syndrome. The patient is currently and detox for heroin. Patient's exam is consistent with carpal tunnel syndrome. Patient was placed in a cock-up right wrist splint and he is to wear this for 2 weeks. He was also started on prednisone 60 mg once a day for 10 days. The patient will be referred to our orthopedic service for re-evaluation. He was given verbal and printed instructions on carpal tunnel syndrome and discharged home. Discharge Plan Discharge Clinical Impression: Acute carpal tunnel syndrome of right wrist Patient Disposition: Home, Self-Care Additional Instructions: Take prednisone 20 mg pills, 3 pills once a day for 10 days. While you are taking prednisone you cannot take any other anti-inflammatory medications such as Motrin, Advil, ibuprofen, Aleve or naproxen. Follow-up with your our on-call orthopedic surgeon in 1-2 weeks Please return to the emergency department if your symptoms get worse or if you develop any symptoms that are concerning to you. Prescriptions: New prednisone 20 mg tablet 60 mg PO DAILY 10 Days Qty: 30 0RF No Action naproxen 500 mg tablet 500 mg PO BID PRN (Reason: pain) Qty: 15 0RF prednisone 20 mg tablet 40 mg PO DAILY 5 Days Qty: 10 0RF ibuprofen 400 mg tablet 400 mg PO Q6H PRN (Reason: pain) Qty: 20 0RF Magic Mouthwash Diphen/Lido/Antacid 1:1:1 240 mL suspension 5 ml PO QID Qty: 240 0RF Rx Instructions: Lidocaine Viscous 2 % 80mL; diphenhydramine 12.5 mg/5 mL 80mL; aluminum-mag hydrox-simeth [id number] 80mL ibuprofen 800 mg tablet 800 mg PO Q8H PRN (Reason: pain) Qty: 20 0RF tramadol 50 mg tablet 50 mg PO Q8H PRN (Reason: pain) Qty: 8 0RF Rx Instructions: for 3 days penicillin V potassium 500 mg tablet 500 mg PO Q8H 7 Days Qty: 21 0RF chlorhexidine gluconate [Peridex] 0.12 % mouthwash 15 ml buccal BID Qty: 118 0RF Referrals: Filiberto Johns MD [Physician] - 2 weeks
[2021-05-14] MEDS: predniSONE 20 MG TABLET 60 MG PO (20:59)
== END 2021-05-14 21:12 | disposition home or self-care (01) ==
PROVIDERS: Emergency Provider Emergency Medicine Emergency Medical Services
DX: G56.01 Carpal tunnel syndrome, right upper limb (principal); M06.9 Rheumatoid arthritis, unspecified; K74.60 Unspecified cirrhosis of liver; B19.20 Unspecified viral hepatitis C without hepatic coma; E11.9 Type 2 diabetes mellitus without complications
CPT/HCPCS: 99283

== ENCOUNTER 2023-09-26 10:59 | Emergency (ER) | payer MEDICAID, SELFPAY ==
--- NOTE | 2023-09-26 11:02 | ED_ITS ---
HPI - General Adult General Chief complaint: Syncope Stated complaint: keeps passing out Time Seen by Provider: 09/26/23 15:42 Source: patient Mode of arrival: ambulatory History of Present Illness ED Provider: Dr Pineda HPI narrative: 63-year-old male who has a history of diabetes, liver cirrhosis and presents with repeated episodes of passing out for the past couple of days but denies any fever, chills, states he has had some knee weakness and lightheadedness and reports he fell 3 times last night and fell into a table and broke some chairs but denies hitting his head. However on questioning the patient at bedside he reports to me that he has fallen primarily on his bottom, denies any alcohol use and reports that he had been constipated for 3 weeks but finally had a bowel movement yesterday. Related Data Home Medications ?Medication ?Instructions ?Recorded ?Confirmed albuterol sulfate 90 mcg/actuation inhalation 06/16/22 aerosol inhaler (ProAir HFA) aluminum chloride 20 % topical topical 06/16/22 solution (Drysol Dab-O-Matic) dextroamphetamine-amphetamine 30 30 mg PO DAILY 06/16/22 mg tablet dextroamphetamine-amphetamine ER 30 mg PO DAILY 06/16/22 30 mg 24hr capsule,extend release (Adderall XR) docusate sodium 100 mg capsule 100 mg PO DAILY PRN 06/16/22 gabapentin 300 mg capsule 300 mg PO TID 06/16/22 multivitamin-iron 9 mg-folic acid 1 tab PO DAILY 06/16/22 400 mcg-calcium and minerals tablet (Therapeutic-M) omeprazole 40 mg capsule,delayed 40 mg PO DAILY 06/16/22 release sennosides 8.6 mg tablet (senna) 8.6 mg PO DAILY PRN 06/16/22 testosterone 12.5 mg/1.25 gram per 4 pump transdermal DAILY 06/16/22 pump actuation (1%) transdermal gel thiamine HCl (vitamin B1) 100 mg 100 mg PO DAILY 06/16/22 tablet (Vitamin B-1) Previous Rx's ?Medication ?Instructions ?Recorded naproxen 500 mg tablet 500 mg PO BID PRN pain #15 tabs 12/29/19 prednisone 20 mg tablet 40 mg (2 x 20 mg) PO DAILY 12/29/19 inflammation 5 days #10 tabs Magic Mouthwash 5 ml PO QID #240 mL 07/02/20 Diphen/Lido/Antacid 1:1:1 240 mL suspension chlorhexidine gluconate 0.12 % 15 ml buccal BID #118 mL 07/13/20 mouthwash (Peridex) ibuprofen 800 mg tablet 800 mg PO Q8H PRN pain #20 tabs 07/13/20 penicillin V potassium 500 mg 500 mg PO Q8H 7 days #21 tabs 07/13/20 tablet tramadol 50 mg tablet 50 mg PO Q8H PRN pain #8 tabs 07/13/20 prednisone 20 mg tablet 60 mg (3 x 20 mg) PO DAILY 10 days 05/14/21 #30 tabs Allergies Allergy/AdvReac Type Severity Reaction Status Date / Time No Known Allergies Allergy Verified 09/26/23 11:10 Review of Systems 2 Review of Systems: Pertinent positives and negatives as stated in HPI [facility] Past Medical History Source: nursing notes reviewed Medical History Adult ADHD Carpal tunnel syndrome of right wrist Arthralgia of both ankles Asthma Pilonidal cyst Liver cirrhosis Hepatitis C Diabetic acidosis, type II Social History Social History Alcohol intake: never Substance Use Type: Former Substance User Advance Directives: No Advance Directives Information Provided: No Do you have a plan to hurt others: No Plan Physical Exam ED Vital Signs: Vital Signs - 24 hr 09/26/23 11:03 09/26/23 15:41 09/26/23 17:38 Temperature 97.2 F 98.4 F 98.0 F Pulse Rate 65 55 55 Respiratory Rate 18 14 17 Blood Pressure 101/46 L 102/66 111/56 L Pulse Oximetry 99 99 97 Oxygen Delivery Method Room Air Room Air Room Air BMI result Body Mass Index 31.8 VITAL SIGNS: Reviewed. GENERAL: Well developed, well nourished, in no acute distress, elevated BMI. HEAD: Normocephalic/atraumatic EYES: PERRLA, EOMI EARS: Ext canals without abnormality NOSE: Nares patent bilateral OROPHARYNX: no oral lesions noted, posterior pharynx clear NECK: Supple, no adenopathy LUNGS: Normal breath sounds. No adventitious sounds or accessory muscle use. SpO2<97> CARDIOVASCULAR: Regular rate and rhythm without noted murmurs, no lower extremity edema ABDOMEN: Soft, non-tender, non-distended with bowel sounds. PELVIS: Stable, nontender MUSCULOSKELETAL: No tenderness, deformities, or effusions noted on gross inspection, no injury to bilateral knees. EXTREMITIES: No cyanosis, clubbing or edema. SKIN: Inspection of the skin reveals no rashes NEUROLOGIC: Alert and oriented x 4. Strength and sensation to light touch were grossly intact x 4. Course Course Course Narrative: This is an RME: Additional HPI, ROS, PE not included below will be deferred to primary provider. RME assessment and note performed by: Adriana Hernandez PA-C This is a 89-avqb-[id number]-male, with a hx of hepatitis C, opioid use disorder on methadone 120mg (last dose yesterday - [facility]), diabetes type 2, who presents to the ER with complaints of 8-9 syncopal episodes over the last 2 days. Pt states that he has fallen three times yesterday. He state that during these episodes he becomes lightheaded, short of breath and falls to the ground. Reporting he has had 4-5 episodes of syncope today. He is A&Ox4. Reporting some intermittent abdominal pain. Abdomen is soft, NT. Also reporting constipation for 3 weeks, had BM yesterday and syncopal episode after. Plan: Labs, EKG, Further ER evaluation needed. Medical Decision Making Medical Decision Making [facility] Narrative: 63-year-old male with history and clinical presentation near syncopal episodes, will rule out electrolyte/arrhythmia/viral etiologies. EKG: Sinus rhythm, HR-64, no STEMI, MN/QRS/QTC is within normal limits. QT is mildly prolonged. I reviewed and interpreted all investigations and hematologic indices are negative for anemia or thrombocytopenia, patient has slight bump in leukocytes without fevers or any reported cough or abdominal pain. Coagulation studies are within normal limits. Chemistry indices demonstrate a new AVERY, however the comparison value was from 2020 so from another facility if patient was seen this may not be new. There is also noted slight elevation of transaminases without derangement of bilirubin or alkaline phosphatase and lipase is within normal limits. The elevated transaminases may be consistent with known underlying liver cirrhosis, I sensitivity troponin is 11.3 but likely reflects worsening kidney function but will repeat. Patient missed his methadone dose and will receive 120 mg of methadone which was verified. Informed that patient left. Differential Diagnosis Differential Diagnoses: The differential diagnosis associated with the presentation includes Please see the discussion above Admission/Observation Consideration of admission/observation: Escalation of care including admission/observation considered Please see the discussion above Lab Data MDM Lab Attestation statement: I reviewed the patient's lab results. Please see the discussion above 09/26/23 11:52 09/26/23 11:52 Labs: Lab Results 09/26/23 09/26/23 Range/Units 11:33 11:52 WBC 11.5 H (4.8-10.8) X10*3/uL RBC 5.37 (4.60-5.80) X10*6/uL Hgb 14.8 (14.0-18.0) g/dl Hct 43.6 (42.0-52.0) % MCV 81.2 (80.0-98.0) fL MCH 27.6 (27.0-33.0) pg MCHC 33.9 (31.0-36.0) g/dl RDW 15.0 (11.0-16.0) % Plt Count 191 (160-400) X10*3/uL MPV 9.6 (9.4-12.4) fL Immature Gran % (Auto) 0.8 H (0.0-0.4) % Neut % (Auto) 62.8 (45-73) % Lymph % (Auto) 27.9 (20-40) % [place] % (Auto) 6.6 (2-11) % Eos % (Auto) 1.4 (0-4) % Baso % (Auto) 0.5 (0-2) % Lymph # (Auto) 3.2 (1.2-4.9) X10*3/uL [place] # (Auto) 0.8 (0.1-1.2) X10*3/uL Eos # (Auto) 0.2 (0.0-0.4) X10*3/uL Baso # (Auto) 0.1 (0.0-0.2) X10*3/uL Abs Immat Gran (auto) 0.09 H (0.00-0.03) X10*3/uL Absolute Neuts (auto) 7.2 (2.0-8.3) x10*3/uL Absolute Nucleated RBC 0.000 (0.0-0.012) X10*3/uL Nucleated RBC % (auto) 0.0 (0.0-0.2) /100WBC PT 12.8 (11.1-13.3) SEC INR 1.1 (0.9-1.1) APTT 31.6 (26.0-36.8) SEC Sodium 137 (135-145) mmol/L Potassium 3.5 (3.3-5.1) mmol/L Chloride 99 (96-108) mmol/L Carbon Dioxide 24 (22-29) mmol/L Anion Gap 18 (12-20) BUN 57 H (9-16) mg/dL Creatinine 3.20 H (0.5-1.4) mg/dL Estim Creat Clear Calc 26.7 Estimated GFR 20 POC Glucose 150 H (60-115) mg/dL Random Glucose 115 (60-115) mg/dL Calcium 8.8 (8.4-10.2) mg/dL Magnesium 2.4 (1.6-2.6) mg/dL Total Bilirubin 0.6 (0.0-1.0) mg/dL Direct Bilirubin 0.3 (0.0-0.5) mg/dL AST 41 H (5-37) U/L ALT 67 H (0-40) U/L Alkaline Phosphatase 88 (39-117) U/L Total Creatine Kinase 62 (38-174) U/L Troponin I High Sens 11.3 (<3.5-35.0) ng/L Total Protein 7.3 (6.5-8.0) g/dL Albumin 3.1 L (3.5-5.0) g/dL Lipase 68 (8-78) U/L Influenza Type A (PCR) NEGATIVE (Negative) Influenza Type B (PCR) NEGATIVE (Negative) RSV RNA Qual (PCR) NEGATIVE (Negative) SARS-CoV-2 RNA (RT-PCR) NEGATIVE (Negative) Independent Interpretation I performed an independent interpretation of an: EKG Interpretation: Please see the discussion above External Record Review External record reviewed: Outpatient record, Prior outpatient labs and Prior outpatient radiology Chronic Conditions Patient?s care impacted by: Diabetes and Hypertension Critical Care Time Critical Care Time Critical Care Time: Yes Total Critical Care Time: 30 Attestation: I personally attest to this time spent taking care of the patient. Discharge Plan Discharge Clinical Impression: AVERY (acute kidney injury), Near syncope Patient Disposition: Elopement Prescriptions: No Action albuterol sulfate [ProAir HFA] 90 mcg/actuation HFA aerosol inhaler inhalation gabapentin 300 mg capsule 300 mg PO TID sennosides [senna] 8.6 mg tablet 8.6 mg PO DAILY PRN dextroamphetamine-amphetamine [Adderall XR] 30 mg capsule,extended release 24hr 30 mg PO DAILY dextroamphetamine-amphetamine 30 mg tablet 30 mg PO DAILY testosterone 12.5 mg/ 1.25 gram (1 %) gel in metered-dose pump 4 pump transdermal DAILY docusate sodium 100 mg capsule 100 mg PO DAILY PRN thiamine HCl (vitamin B1) [Vitamin B-1] 100 mg tablet 100 mg PO DAILY Drysol Dab-O-Matic 20 % solution topical Therapeutic-M 9 mg iron-400 mcg tablet 1 tab PO DAILY omeprazole 40 mg capsule,delayed release(DR/EC) 40 mg PO DAILY naproxen 500 mg tablet 500 mg PO BID PRN (Reason: pain) Qty: 15 0RF prednisone 20 mg tablet 40 mg PO DAILY 5 Days Qty: 10 0RF Magic Mouthwash Diphen/Lido/Antacid 1:1:1 240 mL suspension 5 ml PO QID Qty: 240 0RF Rx Instructions: Lidocaine Viscous 2 % 80mL; diphenhydramine 12.5 mg/5 mL 80mL; aluminum-mag hydrox-simeth [id number]/5mL 80mL ibuprofen 800 mg tablet 800 mg PO Q8H PRN (Reason: pain) Qty: 20 0RF tramadol 50 mg tablet 50 mg PO Q8H PRN (Reason: pain) Qty: 8 0RF Rx Instructions: for 3 days penicillin V potassium 500 mg tablet 500 mg PO Q8H 7 Days Qty: 21 0RF chlorhexidine gluconate [Peridex] 0.12 % mouthwash 15 ml buccal BID Qty: 118 0RF prednisone 20 mg tablet 60 mg PO DAILY 10 Days Qty: 30 0RF Discharge Date/Time: 09/26/23 18:05 Print Language: Indian
[2023-09-26 11:03] VITALS: BP 101/46; PULSE 65; RESP 18; TEMP 36.2; O2SAT 99; BMI 31.8
--- NOTE | 2023-09-26 11:08 | ECG_ITS ---
Test Reason : SYNCOPE Blood Pressure : / mmHG Vent. Rate : 064 BPM Atrial Rate : 064 BPM P-R Int : 106 ms QRS Dur : 082 ms QT Int : 464 ms P-R-T Axes : 032 -33 115 degrees QTc Int : 478 ms Sinus rhythm with short [place] Left axis deviation Possible Inferior infarct , age undetermined Abnormal ECG No previous ECGs available Referred By: Adriana Hernandez Electronically Signed By:THUY REYEZ MD
[2023-09-26 11:57] LABS: MANUAL DIFF FLAG NO
[2023-09-26 11:57] LABS: Glucose, Whole Blood 150 mg/dL (60-115)
[2023-09-26 11:58] LABS: Basophils Absolute Auto 0.1 X10*3/uL (0.0-0.2); Basophils Percent Auto 0.5 % (0-2); Eosinophils Absolute Auto 0.2 X10*3/uL (0.0-0.4); Eosinophils Percent Auto 1.4 % (0-4); Hematocrit 43.6 % (42.0-52.0); Hemoglobin 14.8 g/dl (14.0-18.0); Imm Gran Abs Auto 0.09 X10*3/uL (0.00-0.03); Imm Gran Pct Auto 0.8 % (0.0-0.4); Lymphocytes Absolute Auto 3.2 X10*3/uL (1.2-4.9); Lymphocytes Percent Auto 27.9 % (20-40); Mean Corpuscular HGB Conc 33.9 g/dl (31.0-36.0); Mean Corpuscular Hemoglobin 27.6 pg (27.0-33.0); Mean Corpuscular Volume 81.2 fL (80.0-98.0); Mean Platelet Volume 9.6 fL (9.4-12.4); Monocytes Absolute Auto 0.8 X10*3/uL (0.1-1.2); Monocytes Percent Auto 6.6 % (2-11); Neutrophils Absolute Auto 7.2 x10*3/uL (2.0-8.3); Neutrophils Percent Auto 62.8 % (45-73); Platelet Count 191 X10*3/uL (160-400); Red Blood Count 5.37 X10*6/uL (4.60-5.80); White Blood Count 11.5 X10*3/uL (4.8-10.8)
[2023-09-26 12:07] LABS: INTERNATIONAL NORM RATIO 1.1 (0.9-1.1); Prothrombin Time 12.8 SEC (11.1-13.3)
[2023-09-26 12:09] LABS: Partial Thromboplastin Time 31.6 SEC (26.0-36.8)
[2023-09-26 12:17] LABS: Alanine Aminotransferase 67 U/L (0-40); Albumin Level 3.1 g/dL (3.5-5.0); Alkaline Phosphatase 88 U/L (39-117); Anion Gap 18 (12-20); Aspartate Amino Transferase 41 U/L (5-37); Bilirubin Direct 0.3 mg/dL (0.0-0.5); Bilirubin Total 0.6 mg/dL (0.0-1.0); Blood Urea Nitrogen 57 mg/dL (9-16); Calcium 8.8 mg/dL (8.4-10.2); Carbon Dioxide 24 mmol/L (22-29); Chloride 99 mmol/L (96-108); Creatinine Clr Calc Pharmacy 26.7; Estimated Glomerular Filt Rate 20; Glucose Random 115 mg/dL (60-115); Lipase 68 U/L (8-78); Magnesium 2.4 mg/dL (1.6-2.6); Potassium 3.5 mmol/L (3.3-5.1); Sodium 137 mmol/L (135-145); Total Protein 7.3 g/dL (6.5-8.0)
[2023-09-26 12:25] LABS: Troponin-I High Sensitivity 11.3 ng/L (<3.5-35.0)
[2023-09-26 12:38] LABS: Influenza A PCR NEGATIVE (Negative); Influenza B PCR NEGATIVE (Negative); Resp Syncy Virus RNA Qual PCR NEGATIVE (Negative); SARS COV2 PCR INHOUSE NEGATIVE (Negative)
[2023-09-26 15:41] VITALS: BP 102/66; PULSE 55; RESP 14; TEMP 36.9; O2SAT 99
[2023-09-26 17:38] VITALS: BP 111/56; PULSE 55; RESP 17; TEMP 36.7; O2SAT 97
--- NOTE | 2023-09-26 17:57 | PC.NURSE ---
This RN confirmed with [facility] pts dose of methadone. Methadone confirmation paperwork completed and faxed to pharmacy. Pt made aware. Approx 15 minutes after this RN faxed paperwork to pharmacy pt became very agitated and stated he had an uber coming in 15 minutes . This RN asked pt if he wanted to wait and get his methadone because he was complaining of feeling sick from missing his medications and pt statesd he just wants to leave . aware. Pt left prior to treatment completetion
--- NOTE | 2023-09-27 11:04 | HE.PHANOTE ---
METHADONE Pt receives from [facility], . Per Candelaria at facility, pt last received 120 mg on 09/24 at 10am.
== END 2023-09-26 18:05 | disposition left against medical advice (07) ==
PROVIDERS: Physician Assistant Medical; Emergency Provider Student in an Organized Health Care Education/Training Program; PCP Physician Assistant
DX: N17.9 Acute kidney failure, unspecified (principal); R55 Syncope and collapse; F11.20 Opioid dependence, uncomplicated; E11.9 Type 2 diabetes mellitus without complications; B19.20 Unspecified viral hepatitis C without hepatic coma; J45.909 Unspecified asthma, uncomplicated; Z03.818 Encounter for observation for suspected exposure to other biological agents ruled out; Z79.899 Other long term (current) drug therapy
CPT/HCPCS: 0241U; 36415; 80048; 80076; 82550; 82947; 83690; 83735; 84484; 85025; 85610; 85730; 93005; 99284

== ENCOUNTER → 2023-09-26 11:08 | Outpatient (BNV) | payer MEDICAID, SELFPAY | PROVIDERS: Emergency Provider Student in an Organized Health Care Education/Training Program; PCP Physician Assistant; Visit Provider Internal Medicine Cardiovascular Disease | DX: R55 Syncope and collapse (principal) | CPT/HCPCS: 93010 ==